=== PATIENT | male | born 1985 | race Caucasian/White ===

== ENCOUNTER 2024-06-22 06:13 | Outpatient (CLI) | payer MEDICAID ==
[2024-06-22] MEDS ORDERED: LIDOcaine 1% 30ml preserv. free vial ONE (06:36)
[2024-06-22] MEDS ORDERED: iohexol 300 MG/1 ML 50ml polymer ONE (06:36)
[2024-06-22] MEDS ORDERED: GADOTERATE MEGLUMINE 7.5 MMOL/15 ML VIAL IV ONE (06:36)
[2024-06-22] MEDS ORDERED: LIDOcaine 1%/PF 5ML 10 MG/ML VIAL ONE (06:36)
== END 2024-06-22 23:59 | disposition home or self-care (01) ==
LOC: RAD 06:13
PROVIDERS: ATTEND Specialist
DX: S43.492A Other sprain of left shoulder joint, initial encounter (principal); M24.412 Recurrent dislocation, left shoulder; M25.512 Pain in left shoulder; Z87.891 Personal history of nicotine dependence; X58.XXXA Exposure to other specified factors, initial encounter; Y93.89 Activity, other specified; Y92.89 Other specified places as the place of occurrence of the external cause; Y99.8 Other external cause status
CPT/HCPCS: 23350; 73222; 77002; A9575; J2003; J3490; Q9967; 73040